=== PATIENT | female | born 1990 | race African-American/Black ===

== ENCOUNTER 2021-09-20 17:08 | Emergency (ER) | payer SELFPAY ==
[~2021-09-20] VITALS: Ht 167.6 cm; Wt 77.3 kg
[2021-09-20] MEDS ORDERED: ACETAMINOPHEN 500 MG TABLET PO ONE (17:30)
[2021-09-20 18:32] VITALS: BP 111/64
[2021-09-20] MEDS ORDERED: IBUP-2070 PO (19:01)
[2021-09-20] MEDS ORDERED: CYCL-448 PO (19:01)
== END 2021-09-20 19:28 | disposition home or self-care (01) ==
LOC: EMS 17:20
DX: M54.50 Low back pain, unspecified (principal); F12.90 Cannabis use, unspecified, uncomplicated; F17.210 Nicotine dependence, cigarettes, uncomplicated; V49.49XA Driver injured in collision with other motor vehicles in traffic accident, initial encounter; Y93.89 Activity, other specified; Y92.89 Other specified places as the place of occurrence of the external cause; Y99.8 Other external cause status
CPT/HCPCS: 72070; 72100; 99284; Z7502; Z7610